=== PATIENT | male | born 1950 | race Caucasian/White ===

== ENCOUNTER → 2021-06-27 | Day surgery (SDC) | payer OTHER | END | disposition home or self-care (01) | LOC: FAS 07:45 | DX: G89.29 Other chronic pain (principal); R10.11 Right upper quadrant pain; R10.12 Left upper quadrant pain; K29.50 Unspecified chronic gastritis without bleeding; B96.89 Other specified bacterial agents as the cause of diseases classified elsewhere; K25.9 Gastric ulcer, unspecified as acute or chronic, without hemorrhage or perforation; R00.2 Palpitations; I48.91 Unspecified atrial fibrillation; M79.672 Pain in left foot; I10 Essential (primary) hypertension; Z89.612 Acquired absence of left leg above knee; Z79.01 Long term (current) use of anticoagulants; Z96.659 Presence of unspecified artificial knee joint; Z72.89 Other problems related to lifestyle; Z98.84 Bariatric surgery status ==